=== PATIENT | male | born 1970 | race Caucasian/White ===

== ENCOUNTER 2024-12-29 11:00 | Outpatient (CLI) | payer BC, SELFPAY ==
--- NOTE | 2024-12-29 11:42 | XR_ITS ---
WS: [id number] Exam: XR cervical spine 3V* [id number] Date/Time of Exam: 12/29/2024 11:56 AM Reason For Exam: NECK PAIN No acute fracture or. There is straightening. Slight spondylosis. Normal paraspinal soft tissues. The dens is intact. XR/XR cervical spine 3V* [id number] IMPRESSION: 1. Minimal degenerative change and straightening. 2. No other significant finding.
== END 2024-12-29 11:01 | disposition home or self-care (01) ==
PROVIDERS: PCP Nurse Practitioner Family; Visit Provider Nurse Practitioner Family
DX: M54.2 Cervicalgia (principal)
CPT/HCPCS: 72040

== ENCOUNTER 2025-04-14 13:41 | Outpatient (CLI) | payer BC, SELFPAY ==
--- NOTE | 2025-04-14 13:46 | CTR_ITS ---
PROCEDURE INFORMATION: Exam: CT Abdomen And Pelvis Without Contrast Exam date and time: 04/14/2025 1:56 PM Age: 55 years old Clinical indication: Mass, lump, or swelling; Rlq; Swelling in right lower quadrant/groin area. Benign prostatic hyperplasia TECHNIQUE: Imaging protocol: Computed tomography of the abdomen and pelvis without contrast. Radiation optimization: All CT scans at this facility use at least one of these dose optimization techniques: automated exposure control; mA and/or kV adjustment per patient size (includes targeted exams where dose is matched to clinical indication); or iterative reconstruction. COMPARISON: No relevant prior studies available. RADIATION DOSE METRICS: Total DLP (mGy-cm): 722.57 FINDINGS: Limitations: Evaluation of solid organs, viscera, and vasculature is limited without intravenous contrast. Lungs: Lung bases are clear. Liver: Normal. Gallbladder and biliary ducts: No radiodense gallstones. No biliary ductal dilation. Pancreas: Normal. Spleen: Normal. Adrenal glands: Normal. Kidneys and ureters: No hydronephrosis. No urolithiasis. Simple cyst in the left mid kidney. Stomach and bowel: No dilated or inflamed bowel. Appendix: Normal. Intraperitoneal space: No free air. No free fluid. Vasculature: Mild atherosclerotic calcification of the normal-caliber abdominal aorta. Lymph nodes: No lymphadenopathy. Urinary bladder: Unremarkable as visualized. Reproductive: Mild prostatomegaly. Bones/joints: No acute osseous abnormality. Soft tissues: No acute finding. Small fat-containing right inguinal hernia, without evidence of acute complication. CT/CT abdomen pelvis wo con [id number] IMPRESSION: 1. No acute findings. 2. Small fat-containing right inguinal hernia, without evidence of acute complication. COMMENTS: Consistent with the [employer]'s Incidental Findings Committee white paper (J Am Maria Luisa Radiol 2018): Any incidental renal lesion less than 1 cm or classified as too small to characterize, or any incidental cystic renal lesion characterized as simple-appearing, is likely benign. No follow-up imaging is recommended for these lesions per consensus recommendations based on imaging criteria.
== END 2025-04-14 13:42 | disposition home or self-care (01) ==
LOC: RAD 13:43
PROVIDERS: PCP Nurse Practitioner Family; Visit Provider Nurse Practitioner Family
DX: N40.0 Benign prostatic hyperplasia without lower urinary tract symptoms (principal); R10.30 Lower abdominal pain, unspecified; I70.0 Atherosclerosis of aorta
CPT/HCPCS: 74176